=== PATIENT | female | born 1955 | race Two or more races ===

== ENCOUNTER 2024-10-26 20:36 | Inpatient (IN) | payer OTHER ==
[~2024-10-26] VITALS: Ht 162.6 cm; Wt 71.7 kg
--- NOTE | 2024-10-26 21:00 | NUR ---
SE RECIBE PACIENTE ALERTA Y ORIENTADA X 3 ESFERAS LA CUAL INDICA QUE SUFRIO PAOLA CAIDA Y SE GOLPEO LA RODILLA IZQUIERDA.
[2024-10-26] MEDS ORDERED: KETOROLAC TROMETHAMINE 60 MG VIAL IM STA (21:48)
[2024-10-26] MEDS ORDERED: OxyCODONE HCL/APAP UD (PERCOCET) PO STA (21:58)
[2024-10-26] MEDS ORDERED: MORPHINE SULFATE 4 MG/ML VIAL IV STA (23:00)
--- NOTE | 2024-10-26 23:38 | NUR ---
SE RECIBE PTE ALERTA Y ORIENTADA X3 EN CAMA #6 DE OBSERVACION, PTE EN ESPERA DE RESULTADOS DE LABORATORIO. SE MIDEN SV Y SE MANTIENE BAJO OBSERVACION.
[2024-10-27] MEDS ORDERED: MORPHINE SULFATE 4 MG/ML VIAL IV PRN (01:15)
[2024-10-27] MEDS ORDERED: 0.9 % SODIUM CHLORIDE 1,000 ML IV SCH (01:15)
[2024-10-27 03:14] LABS: HEMATOCRIT 40.9 % (36.0-45.00); HEMOGLOBIN 13.8 g/dL (12.0-15.00); MEAN CELL VOLUME 89.3 fL (80.00-100.00); MEAN CORPUSCULAR HEMOGLOBIN 30.1 pg (27.00-32.0); MEAN CORPUSCULAR HGB CONC 33.7 g/dl (32.0-36.0); PLATELET COUNT 234 K/uL (150-450); RED BLOOD COUNT 4.57 M/uL (4.00-6.00); RED CELL DISTRIBUTION WIDTH 12.7 % (11.5-14.5)
[2024-10-27 03:30] LABS: INR 0.95; PROTHROMBIN TIME 10.4 SECONDS (9.0-11.5)
[2024-10-27 03:39] LABS: D DIMER 5.37 MG/L; PARTIAL THROMBOPLASTIN TIME 25.7 SECONDS (22.0-34.0)
[2024-10-27 04:01] LABS: ALBUMIN 3.5 gm/dL (3.4-5.0); BILIRUBIN TOTAL 0.28 mg/dL (0.3-1.2); CALCIUM 9.2 mg/dL (8.5-10.1); CREATININE SERUM 0.89 mg/dL (0.55-1.02); GFR 63.07; GLOBULINA 3.5 G/DL (2.4-3.5); POTASSIUM 4.13 mEq/L (3.5-5.1)
[2024-10-27] MEDS ORDERED: ENOXAPARIN SODIUM 60 MG/0.6 ML SYRINGE SUBCUTANEO ONE (06:00)
--- NOTE | 2024-10-27 07:22 | NUR ---
PTE ALERTA CONCIENTE Y TRANQUILA EN ESPERA DE MEDICO CONSULTOR, Y EL ORTPOPEDA PANTERA SUH,SE LE OBSERVA PTE CON .9NSS A 150 ML HRS SE MANTIENE BAJO OBSERVACION POR CAMBIOS.
[2024-10-27] MEDS ORDERED: ONDANSETRON HCL 4 MG in 0.9 % SODIUM CHLORIDE 50 ML IV PRN (17:45)
[2024-10-27] MEDS ORDERED: ACETAMINOPHEN 500 MG GEL..CAP PO PRN (17:45)
[2024-10-27] MEDS ORDERED: KETOROLAC TROMETHAMINE 30 MG VIAL IU PRN (17:45)
[2024-10-27 18:43] LABS: PH,URINE 5.5 (5.0-8.0); URINE APPEARANCE Clear; URINE BILIRRUBIN Negative (NEGATIVE); URINE BLOOD Negative; URINE COLOR Yellow; URINE GLUCOSE Negative (NEGATIVE); URINE KETONE 15 (NEGATIVE); URINE LEUKOCYTE Small; URINE NITRATE Negative; URINE PROTEIN Negative (NEGATIVE); URINE UROBILINOGEN 0.2 E.U./dl
[2024-10-27 18:48] LABS: URINE BACTERIA 1138.1 uL (0.0-1933); URINE EPITHELIAL CELLS 5.3 uL (0.0-38.8); URINE RBC 8.2 uL (0.0-20.8); URINE WBC 28.9 uL (0.0-23.2)
[2024-10-27 20:39] VITALS: BP 127/72; O2SAT 98
[2024-10-27 21:00] VITALS: BP 140/74; O2SAT 97
[2024-10-28 00:34] VITALS: BP 127/73; O2SAT 96
[2024-10-28] MEDS ORDERED: MORPHINE SULFATE 4 MG/ML CARTRIDGE IV PRN (07:30)
[2024-10-28 08:00] VITALS: BP 135/69; O2SAT 99
[2024-10-28] MEDS ORDERED: ENOXAPARIN SODIUM 40 MG/0.4 ML SYRINGE SUBCUTANEO SCH (09:00)
[2024-10-28 16:00] VITALS: BP 137/82; O2SAT 97
[2024-10-29 00:57] VITALS: BP 135/71; O2SAT 100
[2024-10-29 07:01] LABS: HEMATOCRIT 33.7 % (36.0-45.00); HEMOGLOBIN 11.5 g/dL (12.0-15.00); MEAN CELL VOLUME 90.9 fL (80.00-100.00); MEAN CORPUSCULAR HGB CONC 34.1 g/dl (32.0-36.0); PLATELET COUNT 168 K/uL (150-450); RED BLOOD COUNT 3.71 M/uL (4.00-6.00); RED CELL DISTRIBUTION WIDTH 12.6 % (11.5-14.5)
[2024-10-29 08:00] VITALS: BP 137/85; O2SAT 99
[2024-10-29 09:52] LABS: CALCIUM 9.3 mg/dL (8.5-10.1); CREATININE SERUM 0.75 mg/dL (0.55-1.02); GFR 76.84; POTASSIUM 4.12 mEq/L (3.5-5.1)
[2024-10-29] MEDS ORDERED: SILVER SULFADIAZINE 50 GM JAR TOP SCH (10:36)
[2024-10-29 16:00] VITALS: BP 129/69; O2SAT 97
[2024-10-30 00:18] VITALS: BP 130/74; O2SAT 99
[2024-10-30 08:00] VITALS: BP 134/71; O2SAT 99
[2024-10-30 16:00] VITALS: BP 127/82; O2SAT 97
[2024-10-31 00:55] VITALS: BP 124/78; O2SAT 97
[2024-10-31 08:00] VITALS: BP 141/82; O2SAT 97
[2024-10-31 10:03] LABS: HEMATOCRIT 33.2 % (36.0-45.00); HEMOGLOBIN 11.3 g/dL (12.0-15.00); MEAN CELL VOLUME 90.2 fL (80.00-100.00); MEAN CORPUSCULAR HEMOGLOBIN 30.6 pg (27.00-32.0); MEAN CORPUSCULAR HGB CONC 33.9 g/dl (32.0-36.0); PLATELET COUNT 214 K/uL (150-450); RED BLOOD COUNT 3.68 M/uL (4.00-6.00); RED CELL DISTRIBUTION WIDTH 12.3 % (11.5-14.5)
[2024-10-31 10:38] LABS: CREATININE SERUM 0.72 mg/dL (0.55-1.02); GFR 80.55; POTASSIUM 3.71 mEq/L (3.5-5.1)
[2024-10-31 16:00] VITALS: BP 141/89; O2SAT 99
[2024-11-01 01:07] VITALS: BP 123/75; O2SAT 98
[2024-11-01 08:00] VITALS: BP 124/80; O2SAT 96
[2024-11-01 16:00] VITALS: BP 130/75; O2SAT 96
[2024-11-02 01:29] VITALS: BP 136/80; O2SAT 97
[2024-11-02 09:21] VITALS: BP 146/81; O2SAT 96
[2024-11-02 16:00] VITALS: BP 126/72; O2SAT 97
[2024-11-03] VITALS: BP 129/61; O2SAT 95
[2024-11-03 08:00] VITALS: BP 130/79; O2SAT 99
[2024-11-03 16:00] VITALS: BP 124/69; O2SAT 97
[2024-11-04 00:10] VITALS: BP 143/77; O2SAT 94
[2024-11-04 08:00] VITALS: BP 128/83; O2SAT 96
[2024-11-04] MEDS ORDERED: VANCOMYCIN HCL 1,000 MG VIAL ONE (12:13)
[2024-11-04] MEDS ORDERED: CEFTRIAXONE SODIUM 2,000 MG VIAL ONE (12:14)
[2024-11-04] MEDS ORDERED: BUPIVACAINE HCL/MPF 0.5% 30ML VIAL ONE (12:14)
[2024-11-04] MEDS ORDERED: CHLORHEXIDINE GLUCONATE 120 ML BOTTLE TOP ONE (12:15)
[2024-11-04] MEDS ORDERED: SODIUM CHLORIDE 0.45 % 1,000 ML IV SCH (18:30)
[2024-11-04] MEDS ORDERED: ONDANSETRON 4 MG TAB.RAPDIS PO PRN (18:30)
[2024-11-04] MEDS ORDERED: MEPERIDINE HCL/PF 50 MG/ML VIAL IM PRN (18:30)
[2024-11-04] MEDS ORDERED: TRAMADOL HCL 50 MG TABLET PO PRN (18:30)
[2024-11-04] MEDS ORDERED: ONDANSETRON HCL 2 MG/ML VIAL IV PRN (18:30)
[2024-11-04] MEDS ORDERED: PROMETHAZINE HCL 50 MG/ML AMPUL IM PRN (18:30)
[2024-11-04] MEDS ORDERED: MORPHINE SULFATE 4 MG/ML VIAL IV ONE (18:50)
[2024-11-04] MEDS ORDERED: ACETAMINOPHEN 325 MG TABLET PO SCH (21:00)
[2024-11-04] MEDS ORDERED: KETOROLAC TROMETHAMINE 10 MG TABLET PO SCH (21:00)
[2024-11-05 00:06] VITALS: BP 127/70; O2SAT 98
[2024-11-05] MEDS ORDERED: CELECOXIB 200 MG CAPSULE PO SCH (01:00)
[2024-11-05 08:00] VITALS: BP 115/71; O2SAT 95
[2024-11-05] MEDS ORDERED: RIVAROXABAN 10 MG TAB PO SCH (09:00)
[2024-11-05] MEDS ORDERED: PANTOPRAZOLE SODIUM 40 MG TABLET.DR PO SCH (09:00)
[2024-11-05] MEDS ORDERED: CEFTRIAXONE SODIUM 1,000 MG VIAL IV SCH (09:00)
[2024-11-05 09:13] LABS: HEMATOCRIT 29.1 % (36.0-45.00); HEMOGLOBIN 9.8 g/dL (12.0-15.00); MEAN CELL VOLUME 90.7 fL (80.00-100.00); MEAN CORPUSCULAR HEMOGLOBIN 30.5 pg (27.00-32.0); MEAN CORPUSCULAR HGB CONC 33.7 g/dl (32.0-36.0); PLATELET COUNT 356 K/uL (150-450)
[2024-11-05 09:59] LABS: ALBUMIN 2.6 gm/dL (3.4-5.0); BILIRUBIN TOTAL 0.55 mg/dL (0.3-1.2); CALCIUM 9.4 mg/dL (8.5-10.1); CREATININE SERUM 0.73 mg/dL (0.55-1.02); GFR 79.28; GLOBULINA 2.9 G/DL (2.4-3.5); MAGNESIUM 2.3 mg/dL (1.8-2.4); PHOSPHOROUS 4.5 mg/dL (2.5-4.9); POTASSIUM 4.94 mEq/L (3.5-5.1); TOTAL PROTEIN 5.5 gm/dL (6.4-8.2)
[2024-11-05 16:00] VITALS: BP 109/74; O2SAT 99
[2024-11-06] VITALS: BP 116/74; O2SAT 97
[2024-11-06 07:40] LABS: MEAN CELL VOLUME 89.9 fL (80.00-100.00); MEAN CORPUSCULAR HGB CONC 34.9 g/dl (32.0-36.0); PLATELET COUNT 294 K/uL (150-450); RED BLOOD COUNT 2.78 M/uL (4.00-6.00); RED CELL DISTRIBUTION WIDTH 12.9 % (11.5-14.5)
[2024-11-06 07:41] LABS: HEMOGLOBIN 8.7 g/dL (12.0-15.00); MEAN CORPUSCULAR HEMOGLOBIN 31.2 pg (27.00-32.0)
[2024-11-06] MEDS ORDERED: SENNA/DOCUSATE SODIUM 1 TAB TABLET PO SCH (09:00)
[2024-11-06] MEDS ORDERED: IRON FUM,PS/FOLIC/BCOMP,C NO.9 1 CAP CAPSULE PO SCH (12:00)
[2024-11-06 17:24] VITALS: BP 147/74; O2SAT 96
[2024-11-07 00:59] VITALS: BP 111/68; O2SAT 95
[2024-11-07 07:02] LABS: HEMATOCRIT 26.5 % (36.0-45.00); MEAN CELL VOLUME 86.5 fL (80.00-100.00); MEAN CORPUSCULAR HEMOGLOBIN 30.7 pg (27.00-32.0); MEAN CORPUSCULAR HGB CONC 35.5 g/dl (32.0-36.0); PLATELET COUNT 304 K/uL (150-450); RED BLOOD COUNT 3.06 M/uL (4.00-6.00); RED CELL DISTRIBUTION WIDTH 15.1 % (11.5-14.5)
[2024-11-07 07:08] LABS: HEMOGLOBIN 9.4 g/dL (12.0-15.00)
[2024-11-07 10:14] VITALS: BP 128/80; O2SAT 99
[2024-11-07 16:00] VITALS: BP 144/81; O2SAT 98
== END 2024-11-07 15:40 | disposition home or self-care (01) | DRG 488 ==
LOC: ER 20:36 → SURH 10-27 19:51
PROVIDERS: General Practice; Orthopaedic Surgery; ADMIT Internal Medicine; ATTEND Internal Medicine
PROC: BQ2SZZZ Computerized Tomography (CT Scan) of Left Lower Extremity (ICD-10-PCS; 2024-10-26)
PROC: B44HZZZ Ultrasonography of Bilateral Lower Extremity Arteries (ICD-10-PCS; 2024-10-29)
PROC: 0QSH04Z Reposition Left Tibia with Internal Fixation Device, Open Approach (ICD-10-PCS; 2024-11-04)
PROC: 0MQP0ZZ Repair Left Knee Bursa and Ligament, Open Approach (ICD-10-PCS; principal; 2024-11-04 13:45)
PROC: 30233N1 Transfusion of Nonautologous Red Blood Cells into Peripheral Vein, Percutaneous Approach (ICD-10-PCS; 2024-11-06)
DX: S82.132A Displaced fracture of medial condyle of left tibia, initial encounter for closed fracture (principal); D62 Acute posthemorrhagic anemia; M80.062A Age-related osteoporosis with current pathological fracture, left lower leg, initial encounter for fracture; F43.20 Adjustment disorder, unspecified; W13.3XXA Fall through floor, initial encounter; Y93.01 Activity, walking, marching and hiking; Y92.009 Unspecified place in unspecified non-institutional (private) residence as the place of occurrence of the external cause

== ENCOUNTER → 2024-11-27 14:08 | Outpatient (CLI) | payer OTHER | END | disposition home or self-care (01) | LOC: LAB 14:08 | PROVIDERS: ATTEND Orthopaedic Surgery | DX: E55.9 Vitamin D deficiency, unspecified (principal); M85.9 Disorder of bone density and structure, unspecified; E56.1 Deficiency of vitamin K ==

== ENCOUNTER 2024-12-18 11:56 | Outpatient (CLI) | payer OTHER | END 2024-12-18 12:00 | disposition home or self-care (01) | LOC: RAD 11:56 | PROVIDERS: ATTEND Orthopaedic Surgery | DX: S82.142D Displaced bicondylar fracture of left tibia, subsequent encounter for closed fracture with routine healing (principal) ==

== ENCOUNTER 2025-01-29 12:06 | Outpatient (CLI) | payer OTHER | END 2025-01-29 12:32 | disposition home or self-care (01) | LOC: RAD 12:06 | PROVIDERS: ATTEND Orthopaedic Surgery | DX: S82.142D Displaced bicondylar fracture of left tibia, subsequent encounter for closed fracture with routine healing (principal); X58.XXXD Exposure to other specified factors, subsequent encounter ==

== ENCOUNTER 2025-03-12 11:11 | Outpatient (CLI) | payer OTHER | END 2025-03-12 11:12 | disposition home or self-care (01) | LOC: NUCLEAR 11:11 | PROVIDERS: ATTEND Orthopaedic Surgery | DX: M81.0 Age-related osteoporosis without current pathological fracture (principal) ==

== ENCOUNTER 2025-03-12 12:47 | Outpatient (CLI) | payer OTHER | END 2025-03-12 12:49 | disposition home or self-care (01) | LOC: RAD 12:47 | PROVIDERS: ATTEND Orthopaedic Surgery | DX: M25.572 Pain in left ankle and joints of left foot (principal) ==

== ENCOUNTER 2025-03-19 14:47 | Outpatient (CLI) | payer OTHER | END 2025-03-19 14:50 | disposition home or self-care (01) | LOC: LAB 14:47 | PROVIDERS: ATTEND Orthopaedic Surgery | DX: E55.9 Vitamin D deficiency, unspecified (principal); M85.9 Disorder of bone density and structure, unspecified ==